=== PATIENT | female | born 1970 | race Two or more races ===

== ENCOUNTER → 2019-01-28 | Outpatient (CLI) | payer OTHER ==
[~2019-01-28] MED LIST: DURICEF 500 MG CAPSULE PO; OXYC1TAB9 PO
== END | disposition home or self-care (01) ==
LOC: MAMO-SONO 08:50
DX: N64.4 Mastodynia (principal); Z12.31 Encounter for screening mammogram for malignant neoplasm of breast

== ENCOUNTER → 2019-06-19 | Outpatient (CLI) | payer OTHER | END | disposition home or self-care (01) | LOC: SONOGRAMA 07:14 | DX: R10.13 Epigastric pain (principal) ==

== ENCOUNTER 2022-09-27 12:21 | Outpatient (CLI) | payer OTHER | END 2022-09-27 13:00 | disposition home or self-care (01) | LOC: RAD 12:21 | DX: M77.30 Calcaneal spur, unspecified foot (principal); M77.31 Calcaneal spur, right foot ==